=== PATIENT | female | born 1980 | race American Indian/Alaskan Native ===

== ENCOUNTER 2019-08-26 09:56 | Emergency (ER) | payer SELFPAY ==
[2019-08-26 10:23] VITALS: BP 108/61
[2019-08-26 12:03] LABS: Bacteria,Urine 1+ /HPF (Negative); Bilirubin,Urine NEG (Negative); Blood,Urine NEG (Negative); Color,Urine Yellow (Yellow); Mucus,Urine FEW /HPF; Protein,Urine <15 mg/dL mg/dL (Negative); Urobilinogen,Urine < 2.0 mg/dL (<2.0)
== END 2019-08-26 14:00 | disposition left against medical advice (07) ==
LOC: ED 09:56
DX: L29.8 Other pruritus (principal); Z53.21 Procedure and treatment not carried out due to patient leaving prior to being seen by health care provider
CPT/HCPCS: 81001